=== PATIENT | male | born 1955 | race Caucasian/White ===

== ENCOUNTER 2016-07-06 19:48 | Day surgery (SDC) | payer SELFPAY ==
[~2016-07-06] VITALS: Ht 182.9 cm; Wt 97.3 kg
[~2016-07-06 19:48] MED LIST: CIPR500T87 PO; IBUP800T PO; METR500T PO
[2016-07-06] MEDS ORDERED: ONDANSETRON 2MG/ML, 2ML IVPush ONE (20:30)
[2016-07-06] MEDS ORDERED: SODIUM CHLORIDE 0.9% 1,000ML IVBOLUS ONE (20:30)
[2016-07-06] MEDS ORDERED: MORPHINE SULFATE 4 MG/ML, 1ML IVPush PRN (20:30)
[2016-07-06 21:09] LABS: HEMOGLOBIN 14.2 g/dL (13.7-18.0)
[2016-07-06 21:12] LABS: ASPARTATE AMINO TRANSFERASE 15 U/L (15-37); BLOOD UREA NITROGEN 16 mg/dL (7-18)
[2016-07-06 22:00] LABS: PATH.CAST-FLAG NOT PRESENT; SPERM-FLAG NOT PRESENT; SRC-FLAG NOT PRESENT; XTAL-FLAG NOT PRESENT; YLC-FLAG NOT PRESENT
[2016-07-06] MEDS ORDERED: OMNIPAQUE 350 MG/ML, 100ML BOTTLE ONE (23:00)
[2016-07-07] MEDS ORDERED: OMNIPAQUE 350 MG/ML, 100ML BOTTLE ONE (00:34)
[2016-07-07] MEDS ORDERED: CEFOTETAN PMX 1GM/50ML 50 ML ONE (01:24)
[2016-07-07] MEDS ORDERED: CEFOTETAN PMX 1GM/50ML 50 ML IV ONE (01:30)
[2016-07-07] MEDS ORDERED: D5%-0.45% NACL 1,000 ML IV ONE (02:51)
[2016-07-07] MEDS ORDERED: ONDANSETRON 2MG/ML, 2ML IVPush PRN ×2 (03:00→08:30)
[2016-07-07] MEDS ORDERED: SODIUM CHLORIDE FLUSH 10ML SYR IVF PRN (03:00)
[2016-07-07] MEDS ORDERED: PROMETHAZINE 25 MG/ML, 1ML IM PRN (03:00)
[2016-07-07] MEDS ORDERED: HYDROmorphone 1 MG/ML, 1ML IVPush PRN (03:00)
[2016-07-07] MEDS ORDERED: MORPHINE SULFATE 4 MG/ML, 1ML IVPush PRN (03:00)
[2016-07-07 06:49] VITALS: BP 114/89
[2016-07-07] MEDS ORDERED: BUPIVACAINE/PF-EPI 0.5% 1:200K ONE (06:58)
[2016-07-07] MEDS ORDERED: MIDAZOLAM 1 MG/ML, 2ML ONE ×2 (07:24)
[2016-07-07] MEDS ORDERED: FENTANYL PF 250 MCG/5ML ONE (07:31)
[2016-07-07] MEDS ORDERED: CEFOTETAN 2 GM ONE (07:32)
[2016-07-07] MEDS ORDERED: ROCURONIUM 10 MG/ML ONE (07:32)
[2016-07-07] MEDS ORDERED: ONDANSETRON 2MG/ML, 2ML ONE (07:32)
[2016-07-07] MEDS ORDERED: NEOSTIGMINE 1 MG/ML, 10ML ONE (07:32)
[2016-07-07] MEDS ORDERED: METOCLOPRAMIDE 5 MG/ML, 2ML ONE (07:32)
[2016-07-07] MEDS ORDERED: GLYCOPYRROLATE 0.2MG/1ML ONE (07:32)
[2016-07-07] MEDS ORDERED: KETOROLAC 30 MG/1 ML ONE (07:32)
[2016-07-07] MEDS ORDERED: PROPOFOL 10 MG/ML, 20ML ONE (07:32)
[2016-07-07] MEDS ORDERED: DEXAMETHASONE 4 MG/ML, 1ML ONE (07:32)
[2016-07-07] MEDS ORDERED: HYDROmorphone 1 MG/ML, 1ML IV PRN (08:30)
[2016-07-07] MEDS ORDERED: FENTANYL PF 100 MCG/2ML IV PRN (08:30)
[2016-07-07] MEDS ORDERED: OXYcodone 5 MG/5 ML ORAL.SOL UDC PO PRN (08:30)
[2016-07-07] MEDS ORDERED: LABETALOL 5MG/ML, 20ML IV PRN (08:30)
[2016-07-07] MEDS ORDERED: PROMETHAZINE 25 MG/ML, 1ML IV PRN (08:30)
[2016-07-07] MEDS ORDERED: hydrALAzine 20 MG/ML, 1ML IV PRN (08:30)
[2016-07-07] MEDS ORDERED: ACETAMINOPHEN 325 MG TABLET PO PRN (08:30)
[2016-07-07] MEDS ORDERED: MEPERIDINE/PF 25MG/0.5ML IVPush PRN (08:30)
== END 2016-07-07 06:49 | disposition home or self-care (01) ==
LOC: ED 23:59 → EDIP 07-07 02:51 → SDC 07-07 02:51 → UNDOADMIN 07-07 02:51 → UNDODISIN 07-07 06:49 → SDC 07-07 06:49 → ED 07-07 06:49
PROVIDERS: ATTEND Surgery
DX: K35.80 Unspecified acute appendicitis (principal); I10 Essential (primary) hypertension
CPT/HCPCS: 36415; 44970; 74177; 80053; 81001; 83690; 85025; 87086; 88304; 93005; 96361; 96365; 96367; 99285; J1100; J1885; J2250; J2405; J2704; J2710; J2765; J3010; J7030; Q9967; S0074; J3490